=== PATIENT | female | born 1975 | race Two or more races ===

== ENCOUNTER → 2017-05-21 | Outpatient (CLI) | payer MEDICAID ==
[~2017-05-21] MED LIST: PREN27TA7 OR
[2017-05-21 11:45] LABS: Basophils # (auto) 0 uL; Basophils % (auto) 0.3 % (0.0-2.0); Eosinophils # (auto) 0 uL; Eosinophils % (auto) 0.5 % (0.0-7.0); Hematocrit 40.2 % (36.0-46.0); Hemoglobin 13.7 g/dL (12.2-16.2); Lymphocytes # (auto) 1.9 uL; Lymphocytes % (auto) 21.4 % (10.0-50.0); Mean Corpuscular Hemoglobin 32.1 pg (28.0-32.0); Mean Corpuscular Hgb Conc. 34.1 g/dL (32.0-36.0); Mean Corpuscular Volume 94.1 fL (80.0-100.0); Mean Platelet Volume 7.9 fL (6.9-10.8); Monocytes # (auto) 0.6 uL; Monocytes % (auto) 6.7 % (0.0-12.0); Neutrophils # (auto) 6.2 uL; Neutrophils % (auto) 71.1 % (37.0-80.0); Nucleated Red Blood Cells % 0.1 %; Platelet Count (auto) 159 10^3/uL (140-450); Red Cell Distribution Width 12.9 % (11.8-14.3); White Blood Cell 8.8 10^3/uL (4.4-10.8)
== END | disposition home or self-care (01) ==
LOC: LAB 10:49
PROVIDERS: ATTEND Obstetrics & Gynecology
DX: Z34.80 Encounter for supervision of other normal pregnancy, unspecified trimester (principal); Z31.430 Encounter of female for testing for genetic disease carrier status for procreative management; Z3A.00 Weeks of gestation of pregnancy not specified
CPT/HCPCS: 36415; 80307; 84144; 84702; 85025; 86703; 86762; 86850; 86900; 86901; 87086; 87340

== ENCOUNTER → 2017-08-14 | Outpatient (CLI) | payer MEDICAID ==
[~2017-08-14] MED LIST changes: +GLY25T PO
[2017-08-14 09:14] LABS: Basophils # (auto) 0.1 uL; Basophils % (auto) 0.6 % (0.0-2.0); Eosinophils # (auto) 0 uL; Eosinophils % (auto) 0.3 % (0.0-7.0); Hematocrit 39.3 % (36.0-46.0); Lymphocytes # (auto) 2.1 uL; Lymphocytes % (auto) 24.2 % (10.0-50.0); Mean Corpuscular Hemoglobin 31.7 pg (28.0-32.0); Mean Corpuscular Hgb Conc. 33.2 g/dL (32.0-36.0); Mean Corpuscular Volume 95.5 fL (80.0-100.0); Monocytes # (auto) 0.7 uL; Monocytes % (auto) 8.2 % (0.0-12.0); Neutrophils # (auto) 5.8 uL; Neutrophils % (auto) 66.7 % (37.0-80.0); Platelet Count (auto) 157 10^3/uL (140-450); Red Blood Cells 4.11 10^6/uL (4.0-5.20); Red Cell Distribution Width 13.1 % (11.8-14.3); White Blood Cell 8.7 10^3/uL (4.4-10.8)
== END | disposition home or self-care (01) ==
LOC: LAB 08:50
PROVIDERS: ATTEND Obstetrics & Gynecology
DX: O09.899 Supervision of other high risk pregnancies, unspecified trimester (principal); O99.810 Abnormal glucose complicating pregnancy; Z3A.00 Weeks of gestation of pregnancy not specified
CPT/HCPCS: 36415; 82951; 85025

== ENCOUNTER 2017-09-11 14:06 | Observation (INO) | payer MEDICAID ==
[~2017-09-11 14:06] MED LIST changes: -GLY25T PO
[2017-09-11] MEDS ORDERED: GLY25T PO (16:18)
== END 2017-09-11 16:00 | disposition home or self-care (01) | DRG 566 ==
LOC: LDRP 14:06
PROVIDERS: ADMIT Specialist; ATTEND Specialist
DX: O24.419 Gestational diabetes mellitus in pregnancy, unspecified control (principal); Z3A.32 32 weeks gestation of pregnancy
CPT/HCPCS: 59025; 76818; 81002; 82948; 82962; G0378

== ENCOUNTER 2017-09-13 15:00 | Observation (INO) | payer MEDICAID ==
[~2017-09-13 15:00] MED LIST changes: +GLY25T PO
== END 2017-09-13 16:30 | disposition home or self-care (01) | DRG 566 ==
LOC: LDRP 15:00
PROVIDERS: ADMIT Obstetrics & Gynecology; ATTEND Obstetrics & Gynecology
DX: O24.419 Gestational diabetes mellitus in pregnancy, unspecified control (principal); Z3A.32 32 weeks gestation of pregnancy
CPT/HCPCS: 59025; 76818; 81002; G0378

== ENCOUNTER 2017-09-20 13:45 | Observation (INO) | payer MEDICAID | END 2017-09-20 15:20 | disposition home or self-care (01) | DRG 566 | LOC: LDRP 13:45 | PROVIDERS: ADMIT Specialist; ATTEND Specialist | DX: O24.419 Gestational diabetes mellitus in pregnancy, unspecified control (principal); O09.523 Supervision of elderly multigravida, third trimester; Z3A.33 33 weeks gestation of pregnancy | CPT/HCPCS: 59025; 76818; 81002; 82962; G0378 ==

== ENCOUNTER 2017-09-27 15:05 | Observation (INO) | payer MEDICAID ==
[~2017-09-27] VITALS: Ht 160 cm; Wt 71.7 kg
[2017-09-27] MEDS ORDERED: TERBUTALINE SULFATE 1 MG/ML 1ML VIAL SC SCH (16:00)
== END 2017-09-27 17:20 | disposition home or self-care (01) | DRG 566 ==
LOC: LDRP 15:05
PROVIDERS: ADMIT Obstetrics & Gynecology; ATTEND Obstetrics & Gynecology
DX: O24.419 Gestational diabetes mellitus in pregnancy, unspecified control (principal); O60.03 Preterm labor without delivery, third trimester; Z3A.34 34 weeks gestation of pregnancy
CPT/HCPCS: 59025; 76818; 81002; 82948; 82962; 94760; 96372; G0378; J3105

== ENCOUNTER → 2017-10-03 | Outpatient (CLI) | payer MEDICAID ==
[2017-10-03 12:29] LABS: Basophils # (auto) 0 uL; Basophils % (auto) 0.2 % (0.0-2.0); Eosinophils # (auto) 0 uL; Eosinophils % (auto) 0.3 % (0.0-7.0); Hematocrit 39.2 % (36.0-46.0); Hemoglobin 13.3 g/dL (12.2-16.2); Lymphocytes # (auto) 1.3 uL; Mean Corpuscular Hemoglobin 32.1 pg (28.0-32.0); Mean Corpuscular Hgb Conc. 33.8 g/dL (32.0-36.0); Mean Corpuscular Volume 94.8 fL (80.0-100.0); Monocytes # (auto) 0.6 uL; Monocytes % (auto) 8.5 % (0.0-12.0); Neutrophils # (auto) 4.7 uL; Nucleated Red Blood Cells % 0.1 %; Platelet Count (auto) 144 10^3/uL (140-450); Red Blood Cells 4.14 10^6/uL (4.0-5.20); Red Cell Distribution Width 13.9 % (11.8-14.3); White Blood Cell 6.6 10^3/uL (4.4-10.8)
== END | disposition home or self-care (01) ==
LOC: LAB 11:21
PROVIDERS: ATTEND Obstetrics & Gynecology
DX: O09.523 Supervision of elderly multigravida, third trimester (principal); Z3A.35 35 weeks gestation of pregnancy
CPT/HCPCS: 36415; 85025

== ENCOUNTER 2017-10-04 15:05 | Observation (INO) | payer MEDICAID | END 2017-10-04 16:38 | disposition home or self-care (01) | DRG 566 | LOC: LDRP 15:05 | PROVIDERS: ADMIT Specialist; ATTEND Specialist | DX: O24.419 Gestational diabetes mellitus in pregnancy, unspecified control (principal); Z3A.35 35 weeks gestation of pregnancy | CPT/HCPCS: 59025; 81002; G0378 ==

== ENCOUNTER 2017-10-11 15:08 | Observation (INO) | payer MEDICAID | END 2017-10-11 16:20 | disposition home or self-care (01) | DRG 566 | LOC: LDRP 15:08 → UNDODISOB 16:20 | PROVIDERS: ADMIT Obstetrics & Gynecology; ATTEND Obstetrics & Gynecology | DX: O24.419 Gestational diabetes mellitus in pregnancy, unspecified control (principal); Z3A.36 36 weeks gestation of pregnancy | CPT/HCPCS: 59025; 76818; 81002; 82962; G0378 ==

== ENCOUNTER 2017-10-14 16:35 | Observation (INO) | payer MEDICAID | END 2017-10-14 17:52 | disposition home or self-care (01) | DRG 566 | LOC: LDRP 16:35 | PROVIDERS: ADMIT Specialist; ATTEND Specialist | DX: O24.419 Gestational diabetes mellitus in pregnancy, unspecified control (principal); Z3A.37 37 weeks gestation of pregnancy | CPT/HCPCS: 76818; 82962; G0378; 59025; 81002 ==

== ENCOUNTER 2017-10-18 15:05 | Observation (INO) | payer MEDICAID | END 2017-10-18 16:15 | disposition home or self-care (01) | DRG 566 | LOC: LDRP 15:05 | PROVIDERS: ADMIT Specialist; ATTEND Specialist | DX: O24.419 Gestational diabetes mellitus in pregnancy, unspecified control (principal); Z3A.37 37 weeks gestation of pregnancy | CPT/HCPCS: 59025; 76818; 81002; 82962; G0378 ==

== ENCOUNTER 2017-10-21 08:45 | Observation (INO) | payer MEDICAID ==
[~2017-10-21] VITALS: Ht 30.5 cm; Wt 0.5 kg
[2017-10-21] MEDS ORDERED: TERBUTALINE SULFATE 1 MG/ML 1ML VIAL SC ONE (09:30)
== END 2017-10-21 10:25 | disposition home or self-care (01) | DRG 566 ==
LOC: LDRP 08:45
PROVIDERS: ADMIT Obstetrics & Gynecology; ATTEND Obstetrics & Gynecology
DX: O24.419 Gestational diabetes mellitus in pregnancy, unspecified control (principal); O09.523 Supervision of elderly multigravida, third trimester; Z3A.38 38 weeks gestation of pregnancy
CPT/HCPCS: 59025; 76818; 81002; 96372; G0378; J3105

== ENCOUNTER 2017-10-22 09:35 | Observation (INO) | payer MEDICAID | END 2017-10-22 10:45 | disposition home or self-care (01) | DRG 566 | LOC: LDRP 09:35 | PROVIDERS: ADMIT Obstetrics & Gynecology; ATTEND Obstetrics & Gynecology | DX: O24.419 Gestational diabetes mellitus in pregnancy, unspecified control (principal); O09.519 Supervision of elderly primigravida, unspecified trimester; Z3A.00 Weeks of gestation of pregnancy not specified | CPT/HCPCS: 59025; 81002; 82962; G0378 ==

== ENCOUNTER 2017-10-27 08:30 | Inpatient (IN) | payer MEDICAID ==
[~2017-10-27] VITALS: Ht 160 cm; Wt 70.3 kg
[2017-10-27] VITALS (11 sets, daily range): BP systolic 90–123; BP diastolic 47–69
[2017-10-27] MEDS: LACTATED RINGER'S 1,000 ML IV SCH (08:56)
[2017-10-27 09:46] LABS: Basophils # (auto) 0 uL; Basophils % (auto) 0.3 % (0.0-2.0); Eosinophils # (auto) 0 uL; Eosinophils % (auto) 0.3 % (0.0-7.0); Hematocrit 38.3 % (36.0-46.0); Lymphocytes # (auto) 1.4 uL; Lymphocytes % (auto) 23.2 % (10.0-50.0); Mean Corpuscular Hemoglobin 31.6 pg (28.0-32.0); Monocytes # (auto) 0.5 uL; Neutrophils # (auto) 4.3 uL; Neutrophils % (auto) 68.2 % (37.0-80.0); Nucleated Red Blood Cells % 0.1 %; Platelet Count (auto) 137 10^3/uL (140-450); Red Blood Cells 4.12 10^6/uL (4.0-5.20); Red Cell Distribution Width 13.8 % (11.8-14.3); White Blood Cell 6.2 10^3/uL (4.4-10.8)
[2017-10-27 09:59] LABS: INR 0.87 (0.9-1.15); Partial Thromboplastin Time 25.9 sec (23.78-33.04); Prothrombin Time 9.4 sec (9.27-12.13)
[2017-10-27 10:01] LABS: Albumin 2.5 g/dL (3.4-5.0); BUN/Creatinine Ratio 8.9; Potassium 3.4 mmol/L (3.5-5.1)
[2017-10-27 10:03] LABS: Bilirubin, Total 0.4 mg/dL (0.2-1.0); Total Protein 6.3 g/dL (6.4-8.2)
[2017-10-27 10:10] LABS: Urine Bacteria MOD /hpf (None Seen); Urine Blood Negative /uL (Negative); Urine Mucus FEW (None Seen); Urine WBC 5 /hpf (0 - 5)
[2017-10-27] MEDS ORDERED: TETRACAINE 1% INJ 2 ML VIAL IJ ONE (11:53)
[2017-10-27] MEDS ORDERED: fentaNYL CITRATE 100 MCG/2 ML VL ONE (11:54)
[2017-10-27] MEDS ORDERED: MIDAZOLAM HCL 1MG/1ML-2 ML VIAL ONE (11:54)
[2017-10-27] MEDS ORDERED: MORPHINE SULF(PF) 0.5MG/ML 10ML VIAL ONE (11:54)
[2017-10-27] MEDS ORDERED: OXYTOCIN 10 UNIT/ML 10ML VIAL ONE (12:32)
[2017-10-27] MEDS ORDERED: CLINDAMYCIN 600MG IV 50 ML IV ONE (12:41)
[2017-10-27] MEDS ORDERED: diphenhdrAMINE HCL 50 MG/1 ML VL IV PRN (12:45)
[2017-10-27] MEDS ORDERED: DEXAMETHASONE SOD PHOS 10MG/1ML VIAL INJ IV PRN (12:45)
[2017-10-27] MEDS ORDERED: NALBUPHINE HCL 10 MG/1ml INJECTION SUBCUT ONE (12:45)
[2017-10-27] MEDS ORDERED: NALOXONE HCL 0.4 MG/ML VIAL IV PRN (12:45)
[2017-10-27] MEDS ORDERED: ONDANSETRON HCL 4 MG/2 ML VIAL IV PRN ×2 (12:45→13:00)
[2017-10-27] MEDS ORDERED: HYDROmorphone HCL 2 MG/ML VL IV PRN (12:45)
[2017-10-27] MEDS ORDERED: TRIAMCINOLONE 40MG/ML 1ML VIAL ONE (12:51)
[2017-10-27] MEDS ORDERED: LACT. RINGERS/OXYTOCIN 20UNITS 1,000 ML IV SCH (12:54)
[2017-10-27] MEDS ORDERED: MORPHINE SULFATE 4 MG/ML SYR/VIAL IV PRN (13:00)
[2017-10-27] MEDS: KETOROLAC TROMETH 30 MG/ML 1ML VIAL IV PRN (19:28)
[2017-10-27 20:23] LABS: Basophils # (auto) 0 uL; Basophils % (auto) 0.2 % (0.0-2.0); Eosinophils # (auto) 0 uL; Eosinophils % (auto) 0.3 % (0.0-7.0); Hematocrit 35.3 % (36.0-46.0); Hemoglobin 11.8 g/dL (12.2-16.2); Lymphocytes # (auto) 1.8 uL; Lymphocytes % (auto) 22.6 % (10.0-50.0); Mean Corpuscular Hemoglobin 31.8 pg (28.0-32.0); Mean Corpuscular Hgb Conc. 33.5 g/dL (32.0-36.0); Mean Corpuscular Volume 94.8 fL (80.0-100.0); Monocytes # (auto) 0.5 uL; Monocytes % (auto) 6.5 % (0.0-12.0); Neutrophils # (auto) 5.6 uL; Neutrophils % (auto) 70.4 % (37.0-80.0); Platelet Count (auto) 116 10^3/uL (140-450); Red Blood Cells 3.72 10^6/uL (4.0-5.20); Red Cell Distribution Width 13.9 % (11.8-14.3)
[2017-10-27] MEDS: CLINDAMYCIN 900MG IV 50 ML IV SCH (22:19)
[2017-10-28] MEDS: KETOROLAC TROMETH 30 MG/ML 1ML VIAL IV PRN (01:51)
[2017-10-28 03:21] VITALS: BP 90/60
[2017-10-28] MEDS: CLINDAMYCIN 900MG IV 50 ML IV SCH ×2 (05:42→13:51)
[2017-10-28 07:00] VITALS: BP 90/57
[2017-10-28 07:12] LABS: Basophils # (auto) 0 uL; Basophils % (auto) 0.3 % (0.0-2.0); Eosinophils # (auto) 0 uL; Eosinophils % (auto) 0.5 % (0.0-7.0); Hematocrit 33.5 % (36.0-46.0); Hemoglobin 11.5 g/dL (12.2-16.2); Lymphocytes # (auto) 1.2 uL; Lymphocytes % (auto) 16.4 % (10.0-50.0); Mean Corpuscular Hemoglobin 32.7 pg (28.0-32.0); Mean Corpuscular Hgb Conc. 34.3 g/dL (32.0-36.0); Mean Corpuscular Volume 95.3 fL (80.0-100.0); Monocytes # (auto) 0.6 uL; Monocytes % (auto) 7.4 % (0.0-12.0); Neutrophils # (auto) 5.7 uL; Neutrophils % (auto) 75.4 % (37.0-80.0); Platelet Count (auto) 112 10^3/uL (140-450); Red Blood Cells 3.52 10^6/uL (4.0-5.20); Red Cell Distribution Width 13.9 % (11.8-14.3); White Blood Cell 7.5 10^3/uL (4.4-10.8)
[2017-10-28] MEDS: LACTATED RINGER'S 1,000 ML IV SCH (08:56)
[2017-10-28] MEDS ORDERED: BISACODYL 10 MG RECT SUPP PR PRN (10:45)
[2017-10-28] MEDS ORDERED: HYDROcodone-ACET 5/325MG TAB PO PRN (10:45)
[2017-10-28] MEDS: DOCUSATE SOD 100 MG CAP PO SCH ×2 (10:52→22:15)
[2017-10-28] MEDS: HYDROcodone-ACET 5/325MG TAB PO PRN ×2 (10:52→17:53)
[2017-10-28 11:00] VITALS: BP_SYST 102; BP_SYST 108; BP_DIAS 60; BP_DIAS 63
[2017-10-28] MEDS ORDERED: DOCUSATE CALCIUM 240 MG CAP PO ONE (11:00)
[2017-10-28] MEDS: SIMETHICONE 80 MG CHEWABLE TABLET PO SCH ×3 (11:56→22:33)
[2017-10-28 15:00] VITALS: BP 100/60
[2017-10-28 19:19] VITALS: BP 101/55
[2017-10-28] MEDS ORDERED: TETANUS-DIPTH-ACEL PERTUSSIS 0.5ML SYRG IM ONE (22:15)
[2017-10-28] MEDS: IBUPROFEN 800 MG TAB PO PRN (22:15)
[2017-10-28 23:00] VITALS: BP 104/51
[2017-10-29 03:00] VITALS: BP 97/51
[2017-10-29] MEDS: HYDROcodone-ACET 5/325MG TAB PO PRN ×2 (04:04→16:26)
[2017-10-29] MEDS: IBUPROFEN 800 MG TAB PO PRN ×2 (05:58→14:15)
[2017-10-29] MEDS: SIMETHICONE 80 MG CHEWABLE TABLET PO SCH ×4 (06:00→22:02)
[2017-10-29 07:30] VITALS: BP 91/52
[2017-10-29] MEDS: DOCUSATE SOD 100 MG CAP PO SCH ×2 (09:48→22:03)
[2017-10-29] MEDS: DOCUSATE CALCIUM 240 MG CAP PO SCH (09:48)
[2017-10-29] MEDS ORDERED: DOCUSATE CALCIUM 240 MG CAP PO SCH (10:00)
[2017-10-29 11:26] VITALS: BP 110/60
[2017-10-29] MEDS ORDERED: TETANUS-DIPTH-ACEL PERTUSSIS 0.5ML SYRG IM ONE (12:00)
[2017-10-29 15:26] VITALS: BP 119/64
[2017-10-29 19:05] VITALS: BP 103/61
[2017-10-29 23:00] VITALS: BP 108/66
[2017-10-30] MEDS: HYDROcodone-ACET 5/325MG TAB PO PRN (00:04)
[2017-10-30 03:00] VITALS: BP 101/62
[2017-10-30] MEDS: SIMETHICONE 80 MG CHEWABLE TABLET PO SCH ×2 (05:51→12:02)
[2017-10-30] MEDS: IBUPROFEN 800 MG TAB PO PRN ×2 (05:52→15:37)
[2017-10-30 07:18] VITALS: BP 99/54
[2017-10-30] MEDS: DOCUSATE CALCIUM 240 MG CAP PO SCH (09:43)
[2017-10-30] MEDS: DOCUSATE SOD 100 MG CAP PO SCH (09:43)
[2017-10-30 11:18] VITALS: BP 100/64
[2017-10-30 15:24] VITALS: BP 104/61
== END 2017-10-30 16:20 | disposition home or self-care (01) | DRG 540 ==
LOC: LDRP 08:30
PROVIDERS: ADMIT Obstetrics & Gynecology; ATTEND Obstetrics & Gynecology
PROC: 10D00Z1 Extraction of Products of Conception, Low, Open Approach (ICD-10-PCS; principal; 2017-10-27 12:01)
DX: O34.211 Maternal care for low transverse scar from previous cesarean delivery (principal); O24.429 Gestational diabetes mellitus in childbirth, unspecified control; Z37.0 Single live birth; Z3A.39 39 weeks gestation of pregnancy; O09.523 Supervision of elderly multigravida, third trimester; Z23 Encounter for immunization
CPT/HCPCS: 36415; 51702; 80053; 81001; 81002; 85025; 85610; 85730; 86850; 86900; 86901; 90715; 96361; 96365; 96372; 96374; J1885; J2250; J2590; J3490